=== PATIENT | male | born 1960 | race Caucasian/White ===

== ENCOUNTER 2021-02-19 05:18 | Inpatient (IN) | payer OTHER ==
[~2021-02-19] VITALS: Ht 172.7 cm; Wt 92.1 kg
[2021-02-19] MEDS ORDERED: ACETAMINOPHEN 500 MG TAB PO ONE (06:15)
[2021-02-19 06:44] LABS: INR 1.04 (0.9-1.15)
[2021-02-19 06:51] LABS: Albumin 3.2 g/dL (3.4-5.0); Anion Gap 10 (5-15); Blood Urea Nitrogen 17 mg/dL (7-18); Calcium 8.6 mg/dL (8.5-10.1); Carbon Dioxide 31 mmol/L (21-32); Chloride 88 mmol/L (98-107); Glucose 141 mg/dL (74-106); Sodium 129 mmol/L (136-145)
[2021-02-19 06:58] LABS: Alanine Aminotransferase 80 U/L (16-61); Alkaline Phosphatase 120 U/L (45-117); Aspartate Aminotransferase 112 U/L (15-37); BUN/Creatinine Ratio 21.5; Bilirubin, Total 1.8 mg/dL (0.2-1.0); GFR African American 129 mL/min; GFR Non-African American 106 mL/min; Total Protein 7.9 g/dL (6.4-8.2)
[2021-02-19 07:14] LABS: Basophils # (auto) 0.1 10 ^3/uL (0-0.2); Basophils % (auto) 0.3 % (0.0-2.0); Eosinophils # (auto) 0 10 ^3/uL (0-0.8); Hematocrit 45.5 % (41.0-53.0); Hemoglobin 16.1 g/dL (13.5-17.5); Lymphocytes # (auto) 0.9 10 ^3/uL (0.4-5.4); Lymphocytes % (auto) 4.9 % (10.0-50.0); Mean Corpuscular Hemoglobin 37.9 pg (28.0-32.0); Mean Corpuscular Hgb Conc. 35.3 g/dL (32.0-36.0); Mean Corpuscular Volume 107.4 fL (80.0-100.0); Monocytes % (auto) 5.5 % (0.0-12.0); Neutrophils # (auto) 16.5 10 ^3/uL (1.6-8.6); Neutrophils % (auto) 89.3 % (37.0-80.0); Nucleated Red Blood Cells % 0.1 %; Red Blood Cells 4.24 10^6/uL (4.5-5.90); Red Cell Distribution Width 14.7 % (11.8-14.3); White Blood Cell 18.5 10^3/uL (4.4-10.8)
[2021-02-19] MEDS ORDERED: AZITHROMYCIN 500MG/ 250ML 250 ML IV ONE (07:45)
[2021-02-19] MEDS ORDERED: cefTRIAXone 1GM/50ML D5W 50 ML IV ONE (07:45)
[2021-02-19] MEDS ORDERED: POTASSIUM EFFERVESENT TAB 25 MEQ PO ONE (08:00)
[2021-02-19] MEDS ORDERED: SODIUM CHLORIDE 0.9% 1,000 ML IV ONE (08:30)
[2021-02-19] MEDS ORDERED: NITROGLYCERIN 0.4 MG SL TAB SL PRN (09:00)
[2021-02-19] MEDS ORDERED: IPRATROPIUM BROM 0.5 MG/2.5ML INH SOL NEB ONE (09:00)
[2021-02-19] MEDS ORDERED: ACETAMINOPHEN 500 MG TAB PO PRN (09:00)
[2021-02-19] MEDS ORDERED: MORPHINE SULFATE INJECTION 2 MG/ML SYRG IV PRN (09:00)
[2021-02-19] MEDS ORDERED: HYDROcodone-ACET 5/325MG TAB PO PRN (09:00)
[2021-02-19] MEDS ORDERED: METOPROLOL TARTRATE 1MG/1ML-5ML VIAL IV ONE (09:00)
[2021-02-19] MEDS: cefTRIAXone 1GM/50ML D5W 50 ML IV SCH (09:00)
[2021-02-19] MEDS ORDERED: methylPREDNISolone SOD SUCC 125 MG/2 ML VL IV ONE (09:00)
[2021-02-19] MEDS ORDERED: LEVALBUTEROL HCL 1.25 MG/3 ML NEB NEB SCH (09:00)
[2021-02-19] MEDS: BUDESONIDE (INHALATION) 0.5 MG/2 ML NEB NEB SCH ×2 (09:50→19:15)
[2021-02-19] MEDS ORDERED: AZITHROMYCIN 500MG/ 250ML 250 ML IV SCH (10:00)
[2021-02-19] MEDS: LORazepam 2MG/ML-1ML VIAL IV PRN ×2 (10:04→19:35)
[2021-02-19] MEDS: ONDANSETRON HCL 4 MG/2 ML VIAL IV PRN (10:05)
[2021-02-19 10:29] VITALS: BP 140/91
[2021-02-19] MEDS: dilTIAZem HCL 180MG ER CAP PO SCH (10:32)
[2021-02-19] MEDS: ENOXAPARIN SOD 40 MG/0.4 ML SYRINGE SC SCH (10:32)
[2021-02-19] MEDS: MULTIPLE VITAMIN TAB PO SCH (10:32)
[2021-02-19] MEDS: RAMIPRIL 2.5 MG CAP PO SCH (10:32)
[2021-02-19] MEDS: THIAMINE HCL 100 MG TAB PO SCH (10:32)
[2021-02-19 13:01] LABS: Urine Bacteria FEW /hpf (None Seen); Urine Blood Negative /uL (Negative); Urine Hyaline Cast FEW /lpf (0 - 2); Urine Specific Gravity 1.024 (1.001-1.035); Urine WBC 3 /hpf (0 - 3)
[2021-02-19 13:17] LABS: Amphetamine Screen, Urine POSITIVE (NEGATIVE); Barbiturate Scree,Urine NEGATIVE (NEGATIVE); Benzodiazephine Screen, Urine NEGATIVE (NEGATIVE); Cannabinoid Screen, Urine POSITIVE (NEGATIVE); Cocaine Screen, Urine NEGATIVE (NEGATIVE); Opiate Scree,Urine NEGATIVE (NEGATIVE); Phencyclidine Screen, Urine NEGATIVE (NEGATIVE)
[2021-02-19] MEDS: LEVALBUTEROL HCL 1.25 MG/3 ML NEB NEB SCH ×2 (14:29→19:15)
[2021-02-19] MEDS: IPRATROPIUM BROM 0.5 MG/2.5ML INH SOL NEB SCH ×2 (14:29→19:15)
[2021-02-19] MEDS ORDERED: DIGO0.12 PO (16:42)
[2021-02-19] MEDS ORDERED: SULF400T11 PO (16:42)
[2021-02-19] MEDS ORDERED: POTA-264 PO (16:42)
[2021-02-19] MEDS ORDERED: FUR20T PO (16:42)
[2021-02-19] MEDS ORDERED: MET50T PO (16:42)
[2021-02-19] MEDS ORDERED: ALBU108A5 IN (16:42)
[2021-02-19] MEDS ORDERED: ASPI-528 PO (16:42)
[2021-02-19] MEDS ORDERED: METH4TAB47 PO (16:42)
[2021-02-19 21:05] VITALS: BP 119/72
[2021-02-19 22:00] VITALS: BP 119/72
[2021-02-20] MEDS: IPRATROPIUM BROM 0.5 MG/2.5ML INH SOL NEB SCH ×4 (00:58→19:04)
[2021-02-20] MEDS: LEVALBUTEROL HCL 1.25 MG/3 ML NEB NEB SCH ×4 (00:58→19:04)
[2021-02-20 05:00] VITALS: BP 112/70
[2021-02-20 06:21] LABS: Calcium 8.3 mg/dL (8.5-10.1); Potassium 3.2 mmol/L (3.5-5.1)
[2021-02-20] MEDS: BUDESONIDE (INHALATION) 0.5 MG/2 ML NEB NEB SCH ×2 (06:32→19:04)
[2021-02-20 07:33] LABS: Basophils # (auto) 0 10 ^3/uL (0-0.2); Basophils % (auto) 0.1 % (0.0-2.0); Eosinophils # (auto) 0 10 ^3/uL (0-0.8); Hemoglobin 14.6 g/dL (13.5-17.5); Lymphocytes # (auto) 0.6 10 ^3/uL (0.4-5.4); Lymphocytes % (auto) 3.8 % (10.0-50.0); Mean Corpuscular Hemoglobin 38.8 pg (28.0-32.0); Mean Corpuscular Hgb Conc. 35.6 g/dL (32.0-36.0); Mean Corpuscular Volume 108.8 fL (80.0-100.0); Monocytes # (auto) 0.7 10 ^3/uL (0-1.3); Monocytes % (auto) 4.6 % (0.0-12.0); Neutrophils # (auto) 14.4 10 ^3/uL (1.6-8.6); Neutrophils % (auto) 91.5 % (37.0-80.0); Nucleated Red Blood Cells % 0.1 %; Red Blood Cells 3.77 10^6/uL (4.5-5.90); Red Cell Distribution Width 15.1 % (11.8-14.3); White Blood Cell 15.7 10^3/uL (4.4-10.8)
[2021-02-20 08:00] VITALS: BP 103/61
[2021-02-20 09:00] VITALS: BP 103/61
[2021-02-20] MEDS: cefTRIAXone 1GM/50ML D5W 50 ML IV SCH (09:19)
[2021-02-20] MEDS: MULTIPLE VITAMIN TAB PO SCH (09:19)
[2021-02-20] MEDS: dilTIAZem HCL 180MG ER CAP PO SCH (09:20)
[2021-02-20] MEDS: THIAMINE HCL 100 MG TAB PO SCH (09:21)
[2021-02-20] MEDS: RAMIPRIL 2.5 MG CAP PO SCH (09:21)
[2021-02-20] MEDS: ENOXAPARIN SOD 40 MG/0.4 ML SYRINGE SC SCH (09:21)
[2021-02-20] MEDS: LORazepam 2MG/ML-1ML VIAL IV PRN ×2 (09:22→20:40)
[2021-02-20] MEDS ORDERED: methylPREDNISolone SOD SUCC 125 MG/2 ML VL IV ONE (10:00)
[2021-02-20] MEDS ORDERED: chlordiazePOXIDE HCL 25 MG CAP PO ONE (10:00)
[2021-02-20] MEDS ORDERED: POTASSIUM EFFERVESENT TAB 25 MEQ PO ONE (10:00)
[2021-02-20] MEDS ORDERED: DIGOXIN 0.125 MG TAB PO ONE (10:15)
[2021-02-20] MEDS ORDERED: FUROSEMIDE 20 MG TAB PO ONE (10:15)
[2021-02-20] MEDS ORDERED: METOPROLOL TARTRATE 50 MG TAB PO ONE (10:15)
[2021-02-20] MEDS: AZITHROMYCIN 500MG/ 250ML 250 ML IV SCH (10:30)
[2021-02-20 13:00] VITALS: BP_SYST 110; BP_SYST 91; BP_DIAS 55; BP_DIAS 65
[2021-02-20 17:00] VITALS: BP 91/55
[2021-02-20] MEDS ORDERED: IPRATROPIUM BROM 0.5 MG/2.5ML INH SOL NEB PRN (17:45)
[2021-02-20] MEDS: methylPREDNISolone SOD SUCC 40 MG/ML VL IV SCH (17:48)
[2021-02-20] MEDS: chlordiazePOXIDE HCL 25 MG CAP PO SCH (17:48)
[2021-02-20] MEDS ORDERED: LEVALBUTEROL HCL 1.25 MG/3 ML NEB NEB PRN (18:00)
[2021-02-20] MEDS ORDERED: LEVALBUTEROL HCL 1.25 MG/3 ML NEB NEB SCH (18:00)
[2021-02-20] MEDS: FUROSEMIDE 20 MG TAB PO SCH (18:00)
[2021-02-20 22:00] VITALS: BP 102/48
[2021-02-20] MEDS: METOPROLOL TARTRATE 50 MG TAB PO SCH (22:00)
[2021-02-21] MEDS: chlordiazePOXIDE HCL 25 MG CAP PO SCH ×5 (00:32→23:51)
[2021-02-21] MEDS: methylPREDNISolone SOD SUCC 40 MG/ML VL IV SCH ×3 (00:33→12:42)
[2021-02-21] MEDS: LEVALBUTEROL HCL 1.25 MG/3 ML NEB NEB SCH ×4 (00:59→18:38)
[2021-02-21] MEDS: IPRATROPIUM BROM 0.5 MG/2.5ML INH SOL NEB SCH ×4 (00:59→18:38)
[2021-02-21 05:00] VITALS: BP 104/53
[2021-02-21] MEDS: FUROSEMIDE 20 MG TAB PO SCH ×2 (05:56→18:03)
[2021-02-21 06:03] LABS: Basophils # (auto) 0 10 ^3/uL (0-0.2); Eosinophils # (auto) 0 10 ^3/uL (0-0.8); Hemoglobin 14.1 g/dL (13.5-17.5); Lymphocytes # (auto) 0.6 10 ^3/uL (0.4-5.4)
[2021-02-21 06:04] LABS: Basophils % (auto) 0.1 % (0.0-2.0); Hematocrit 39.4 % (41.0-53.0); Lymphocytes % (auto) 4.8 % (10.0-50.0); Mean Corpuscular Hemoglobin 38.8 pg (28.0-32.0); Mean Corpuscular Hgb Conc. 35.6 g/dL (32.0-36.0); Mean Corpuscular Volume 108.8 fL (80.0-100.0); Monocytes # (auto) 0.4 10 ^3/uL (0-1.3); Monocytes % (auto) 2.9 % (0.0-12.0); Neutrophils # (auto) 11.7 10 ^3/uL (1.6-8.6); Neutrophils % (auto) 92.2 % (37.0-80.0); Red Blood Cells 3.62 10^6/uL (4.5-5.90); Red Cell Distribution Width 14.6 % (11.8-14.3); White Blood Cell 12.7 10^3/uL (4.4-10.8)
[2021-02-21 06:53] LABS: Potassium 3.4 mmol/L (3.5-5.1)
[2021-02-21 06:59] LABS: Albumin 2.7 g/dL (3.4-5.0); BUN/Creatinine Ratio 35.5; Calcium 8.3 mg/dL (8.5-10.1)
[2021-02-21 07:01] LABS: Bilirubin, Total 0.6 mg/dL (0.2-1.0); Total Protein 7.1 g/dL (6.4-8.2)
[2021-02-21] MEDS: BUDESONIDE (INHALATION) 0.5 MG/2 ML NEB NEB SCH ×2 (08:15→18:38)
[2021-02-21 09:00] VITALS: BP 108/62
[2021-02-21] MEDS: cefTRIAXone 1GM/50ML D5W 50 ML IV SCH (09:18)
[2021-02-21] MEDS: THIAMINE HCL 100 MG TAB PO SCH (10:23)
[2021-02-21] MEDS: AZITHROMYCIN 500MG/ 250ML 250 ML IV SCH (10:23)
[2021-02-21] MEDS: RAMIPRIL 2.5 MG CAP PO SCH (10:25)
[2021-02-21] MEDS: dilTIAZem HCL 180MG ER CAP PO SCH (10:26)
[2021-02-21] MEDS: POTASSIUM CHL 10 Meq TABLET PO SCH (10:26)
[2021-02-21] MEDS: ASPirin-EC 81 mg tab PO SCH (10:26)
[2021-02-21] MEDS: DIGOXIN 0.125 MG TAB PO SCH (10:27)
[2021-02-21] MEDS: METOPROLOL TARTRATE 50 MG TAB PO SCH ×2 (10:27→22:00)
[2021-02-21] MEDS: MULTIPLE VITAMIN TAB PO SCH (10:27)
[2021-02-21] MEDS: ENOXAPARIN SOD 40 MG/0.4 ML SYRINGE SC SCH (10:28)
[2021-02-21] MEDS: LORazepam 2MG/ML-1ML VIAL IV PRN ×2 (12:11→19:30)
[2021-02-21] MEDS ORDERED: NICOTINE 21MG/24 HR TOPICAL PATCH TD ONE (12:30)
[2021-02-21] MEDS ORDERED: POTASSIUM EFFERVESENT TAB 25 MEQ PO ONE (14:45)
[2021-02-21 17:00] VITALS: BP 110/65
[2021-02-21] MEDS: Glucerna Carbsteady SHAKE Vanilla 8oz PO SCH (18:02)
[2021-02-21] MEDS: methylPREDNISolone SOD SUCC 125 MG/2 ML VL IV SCH (21:33)
[2021-02-21 22:00] VITALS: BP 100/59
[2021-02-22] MEDS: LEVALBUTEROL HCL 1.25 MG/3 ML NEB NEB SCH ×5 (00:19→23:45)
[2021-02-22] MEDS: IPRATROPIUM BROM 0.5 MG/2.5ML INH SOL NEB SCH ×5 (00:19→23:45)
[2021-02-22 05:00] VITALS: BP 124/62
[2021-02-22] MEDS: methylPREDNISolone SOD SUCC 125 MG/2 ML VL IV SCH ×3 (05:17→20:56)
[2021-02-22] MEDS: FUROSEMIDE 20 MG TAB PO SCH ×2 (05:18→18:00)
[2021-02-22] MEDS: chlordiazePOXIDE HCL 25 MG CAP PO SCH ×4 (05:19→23:51)
[2021-02-22 06:06] LABS: Basophils # (auto) 0 10 ^3/uL (0-0.2); Eosinophils # (auto) 0 10 ^3/uL (0-0.8); Lymphocytes # (auto) 0.6 10 ^3/uL (0.4-5.4); Monocytes # (auto) 0.4 10 ^3/uL (0-1.3); Neutrophils % (auto) 90.6 % (37.0-80.0); Red Blood Cells 3.46 10^6/uL (4.5-5.90)
[2021-02-22 06:08] LABS: Hematocrit 37.7 % (41.0-53.0); Hemoglobin 13.4 g/dL (13.5-17.5); Lymphocytes % (auto) 5.5 % (10.0-50.0); Mean Corpuscular Hemoglobin 38.7 pg (28.0-32.0); Mean Corpuscular Hgb Conc. 35.5 g/dL (32.0-36.0); Mean Corpuscular Volume 108.9 fL (80.0-100.0); Monocytes % (auto) 3.9 % (0.0-12.0); Neutrophils # (auto) 10.1 10 ^3/uL (1.6-8.6); Red Cell Distribution Width 14.5 % (11.8-14.3); White Blood Cell 11.1 10^3/uL (4.4-10.8)
[2021-02-22 06:26] LABS: Potassium 3.9 mmol/L (3.5-5.1)
[2021-02-22 06:39] LABS: Albumin 2.3 g/dL (3.4-5.0); BUN/Creatinine Ratio 43.3; Bilirubin, Total 0.5 mg/dL (0.2-1.0); Calcium 8.2 mg/dL (8.5-10.1); Total Protein 6.3 g/dL (6.4-8.2)
[2021-02-22] MEDS: BUDESONIDE (INHALATION) 0.5 MG/2 ML NEB NEB SCH ×2 (07:31→23:15)
[2021-02-22] MEDS: Glucerna Carbsteady SHAKE Vanilla 8oz PO SCH ×3 (08:51→18:39)
[2021-02-22] MEDS: cefTRIAXone 1GM/50ML D5W 50 ML IV SCH (08:51)
[2021-02-22 09:00] VITALS: BP 121/65
[2021-02-22] MEDS: THIAMINE HCL 100 MG TAB PO SCH (09:11)
[2021-02-22] MEDS: AZITHROMYCIN 500MG/ 250ML 250 ML IV SCH (09:11)
[2021-02-22] MEDS: RAMIPRIL 2.5 MG CAP PO SCH (09:16)
[2021-02-22] MEDS: dilTIAZem HCL 180MG ER CAP PO SCH (09:18)
[2021-02-22] MEDS: DIGOXIN 0.125 MG TAB PO SCH (09:18)
[2021-02-22] MEDS: POTASSIUM CHL 10 Meq TABLET PO SCH (09:18)
[2021-02-22] MEDS: ASPirin-EC 81 mg tab PO SCH (09:18)
[2021-02-22] MEDS: ENOXAPARIN SOD 40 MG/0.4 ML SYRINGE SC SCH (09:19)
[2021-02-22] MEDS: MULTIPLE VITAMIN TAB PO SCH (09:19)
[2021-02-22] MEDS: METOPROLOL TARTRATE 50 MG TAB PO SCH ×2 (09:19→22:00)
[2021-02-22] MEDS: NICOTINE 21MG/24 HR TOPICAL PATCH TD SCH (09:20)
[2021-02-22 13:00] VITALS: BP 107/68
[2021-02-22] MEDS ORDERED: IPRATROPIUM BROM 0.5 MG/2.5ML INH SOL NEB PRN (14:30)
[2021-02-22 15:06] VITALS: BP 107/68
[2021-02-22 16:46] VITALS: BP 89/59
[2021-02-22] MEDS: ONDANSETRON HCL 4 MG/2 ML VIAL IV PRN ×2 (19:46→23:51)
[2021-02-22 22:00] VITALS: BP 99/58
[2021-02-23 05:00] VITALS: BP 90/48
[2021-02-23] MEDS: methylPREDNISolone SOD SUCC 125 MG/2 ML VL IV SCH ×3 (05:33→21:23)
[2021-02-23] MEDS: FUROSEMIDE 20 MG TAB PO SCH ×2 (05:33→18:52)
[2021-02-23] MEDS: chlordiazePOXIDE HCL 25 MG CAP PO SCH ×4 (05:33→23:29)
[2021-02-23] MEDS: IPRATROPIUM BROM 0.5 MG/2.5ML INH SOL NEB SCH ×4 (06:45→23:38)
[2021-02-23] MEDS: BUDESONIDE (INHALATION) 0.5 MG/2 ML NEB NEB SCH ×2 (06:45→19:46)
[2021-02-23] MEDS: LEVALBUTEROL HCL 1.25 MG/3 ML NEB NEB SCH ×4 (06:45→23:38)
[2021-02-23 07:26] LABS: Hematocrit 40.5 % (41.0-53.0); Hemoglobin 14.3 g/dL (13.5-17.5); Mean Corpuscular Hemoglobin 38.8 pg (28.0-32.0); Mean Corpuscular Hgb Conc. 35.4 g/dL (32.0-36.0); Mean Corpuscular Volume 109.5 fL (80.0-100.0); Red Blood Cells 3.69 10^6/uL (4.5-5.90); Red Cell Distribution Width 14.3 % (11.8-14.3); White Blood Cell 11.8 10^3/uL (4.4-10.8)
[2021-02-23 07:27] LABS: Band Neutrophils % (manual) 0; Basophils % (manual) 0 (0.0-2.0); Blast Cells 0; Eosinophils % (manual) 0 (0-7); Metamyelocytes % 0; Myelocytes % 0; Promyelocytes % 0; Reactive Lymphocytes 0
[2021-02-23 07:49] LABS: Calcium 8.4 mg/dL (8.5-10.1); Potassium 4.8 mmol/L (3.5-5.1)
[2021-02-23 07:52] LABS: BUN/Creatinine Ratio 51.1
[2021-02-23 08:19] LABS: Lymphocytes % (manual) 9 (10.0-50.0); Monocytes % (manual) 2 (0-12)
[2021-02-23 08:27] VITALS: BP 95/57
[2021-02-23] MEDS: METOPROLOL TARTRATE 50 MG TAB PO SCH ×2 (10:00→23:29)
[2021-02-23] MEDS: dilTIAZem HCL 180MG ER CAP PO SCH (10:00)
[2021-02-23] MEDS: RAMIPRIL 2.5 MG CAP PO SCH (10:00)
[2021-02-23] MEDS: ENOXAPARIN SOD 40 MG/0.4 ML SYRINGE SC SCH (10:05)
[2021-02-23] MEDS: cefTRIAXone 1GM/50ML D5W 50 ML IV SCH (10:05)
[2021-02-23] MEDS: POTASSIUM CHL 10 Meq TABLET PO SCH (10:05)
[2021-02-23] MEDS: DIGOXIN 0.125 MG TAB PO SCH (10:07)
[2021-02-23] MEDS: THIAMINE HCL 100 MG TAB PO SCH (10:07)
[2021-02-23] MEDS: ASPirin-EC 81 mg tab PO SCH (10:07)
[2021-02-23] MEDS: MULTIPLE VITAMIN TAB PO SCH (10:08)
[2021-02-23] MEDS: NICOTINE 21MG/24 HR TOPICAL PATCH TD SCH (10:08)
[2021-02-23] MEDS: AZITHROMYCIN 500MG/ 250ML 250 ML IV SCH (10:12)
[2021-02-23] MEDS: Glucerna Carbsteady SHAKE Vanilla 8oz PO SCH ×3 (10:15→18:51)
[2021-02-23 13:00] VITALS: BP 118/76
[2021-02-23 16:48] VITALS: BP 124/78
[2021-02-23] MEDS: LORazepam 2MG/ML-1ML VIAL IV PRN (21:23)
[2021-02-23 22:00] VITALS: BP 119/77
[2021-02-24 05:00] VITALS: BP 124/88
[2021-02-24] MEDS: methylPREDNISolone SOD SUCC 125 MG/2 ML VL IV SCH (05:52)
[2021-02-24] MEDS: FUROSEMIDE 20 MG TAB PO SCH ×2 (05:52→17:42)
[2021-02-24] MEDS: chlordiazePOXIDE HCL 25 MG CAP PO SCH ×4 (05:53→23:30)
[2021-02-24 06:12] LABS: Hemoglobin 14.6 g/dL (13.5-17.5)
[2021-02-24 06:21] LABS: Hematocrit 41.8 % (41.0-53.0); Mean Corpuscular Hemoglobin 38.2 pg (28.0-32.0); Mean Corpuscular Volume 109.3 fL (80.0-100.0); Red Blood Cells 3.82 10^6/uL (4.5-5.90); Red Cell Distribution Width 14.7 % (11.8-14.3); White Blood Cell 12.4 10^3/uL (4.4-10.8)
[2021-02-24 06:25] LABS: Basophils % (manual) 0 (0.0-2.0); Blast Cells 0; Eosinophils % (manual) 0 (0-7); Promyelocytes % 0; Reactive Lymphocytes 0
[2021-02-24] MEDS: LEVALBUTEROL HCL 1.25 MG/3 ML NEB NEB SCH ×3 (07:21→18:49)
[2021-02-24] MEDS: BUDESONIDE (INHALATION) 0.5 MG/2 ML NEB NEB SCH ×2 (07:22→18:49)
[2021-02-24] MEDS: IPRATROPIUM BROM 0.5 MG/2.5ML INH SOL NEB SCH ×3 (07:22→18:49)
[2021-02-24 08:00] VITALS: BP 116/72
[2021-02-24 08:30] LABS: Anion Gap 5 (5-15); Blood Urea Nitrogen 42 mg/dL (7-18); Calcium 8.4 mg/dL (8.5-10.1); Carbon Dioxide 34 mmol/L (21-32); Chloride 100 mmol/L (98-107); Glucose 141 mg/dL (74-106); Sodium 139 mmol/L (136-145)
[2021-02-24 08:36] LABS: BUN/Creatinine Ratio 42.4; GFR African American 99 mL/min; GFR Non-African American 82 mL/min
[2021-02-24 08:41] LABS: Band Neutrophils % (manual) 1; Lymphocytes % (manual) 11 (10.0-50.0); Metamyelocytes % 2; Monocytes % (manual) 5 (0-12); Myelocytes % 1
[2021-02-24 09:00] VITALS: BP 116/72
[2021-02-24] MEDS: Glucerna Carbsteady SHAKE Vanilla 8oz PO SCH ×3 (10:03→17:41)
[2021-02-24] MEDS: AZITHROMYCIN 500MG/ 250ML 250 ML IV SCH (10:04)
[2021-02-24] MEDS: THIAMINE HCL 100 MG TAB PO SCH (10:04)
[2021-02-24] MEDS: dilTIAZem HCL 180MG ER CAP PO SCH (10:05)
[2021-02-24] MEDS: ASPirin-EC 81 mg tab PO SCH (10:05)
[2021-02-24] MEDS: RAMIPRIL 2.5 MG CAP PO SCH (10:05)
[2021-02-24] MEDS: MULTIPLE VITAMIN TAB PO SCH (10:06)
[2021-02-24] MEDS: ENOXAPARIN SOD 40 MG/0.4 ML SYRINGE SC SCH (10:06)
[2021-02-24] MEDS: DIGOXIN 0.125 MG TAB PO SCH (10:06)
[2021-02-24] MEDS: METOPROLOL TARTRATE 50 MG TAB PO SCH ×2 (10:07→21:36)
[2021-02-24] MEDS: NICOTINE 21MG/24 HR TOPICAL PATCH TD SCH (10:07)
[2021-02-24] MEDS: cefTRIAXone 1GM/50ML D5W 50 ML IV SCH (10:15)
[2021-02-24] MEDS: LORazepam 2MG/ML-1ML VIAL IV PRN ×2 (10:15→21:36)
[2021-02-24 12:48] VITALS: BP 124/70
[2021-02-24 16:58] VITALS: BP 100/54
[2021-02-24] MEDS: methylPREDNISolone SOD SUCC 40 MG/ML VL IV SCH (21:35)
[2021-02-24 22:00] VITALS: BP 106/70
[2021-02-25] VITALS (7 sets, daily range): BP systolic 100–123; BP diastolic 63–80
[2021-02-25] MEDS: LEVALBUTEROL HCL 1.25 MG/3 ML NEB NEB SCH ×4 (00:32→19:19)
[2021-02-25] MEDS: IPRATROPIUM BROM 0.5 MG/2.5ML INH SOL NEB SCH ×4 (00:32→19:19)
[2021-02-25] MEDS: MORPHINE SULFATE INJECTION 2 MG/ML SYRG IV PRN (02:05)
[2021-02-25] MEDS: LORazepam 2MG/ML-1ML VIAL IV PRN ×4 (04:59→21:02)
[2021-02-25] MEDS: FUROSEMIDE 20 MG TAB PO SCH ×2 (04:59→17:58)
[2021-02-25] MEDS: chlordiazePOXIDE HCL 25 MG CAP PO SCH ×4 (04:59→23:39)
[2021-02-25] MEDS: BUDESONIDE (INHALATION) 0.5 MG/2 ML NEB NEB SCH ×2 (06:44→19:19)
[2021-02-25 06:58] LABS: Anion Gap 6 (5-15); BUN/Creatinine Ratio 55.8; Blood Urea Nitrogen 43 mg/dL (7-18); Calcium 7.6 mg/dL (8.5-10.1); Carbon Dioxide 28 mmol/L (21-32); Chloride 101 mmol/L (98-107); GFR African American 133 mL/min; GFR Non-African American 110 mL/min; Glucose 142 mg/dL (74-106); Sodium 135 mmol/L (136-145)
[2021-02-25 07:06] LABS: Hematocrit 45.9 % (41.0-53.0); Hemoglobin 16.2 g/dL (13.5-17.5); Mean Corpuscular Hemoglobin 38.6 pg (28.0-32.0); Mean Corpuscular Hgb Conc. 35.4 g/dL (32.0-36.0); Mean Corpuscular Volume 109.1 fL (80.0-100.0); Red Cell Distribution Width 14.7 % (11.8-14.3)
[2021-02-25 07:30] LABS: Band Neutrophils % (manual) 0; Basophils % (manual) 0 (0.0-2.0); Blast Cells 0; Eosinophils % (manual) 0 (0-7); Metamyelocytes % 0; Myelocytes % 0; Promyelocytes % 0; Reactive Lymphocytes 0
[2021-02-25 07:34] LABS: Potassium 6.2 mmol/L (3.5-5.1)
[2021-02-25] MEDS ORDERED: InsuLIN REG 1unit/0.01ml Soln (100units/ml) IV ONE (08:00)
[2021-02-25] MEDS ORDERED: SODIUM BICARBONATE 8.4% INJ 50ML SYRINGE IV ONE (08:00)
[2021-02-25] MEDS ORDERED: CALCIUM GLUC 1,000mg/50ml-NS 50 ML IV ONE ×2 (08:00→08:15)
[2021-02-25] MEDS ORDERED: DEXTROSE (50%) 50ML SYRG IV ONE (08:00)
[2021-02-25] MEDS: SODIUM ZIRCONIUM CYCL 10 GM PAK PO SCH ×2 (08:32→21:02)
[2021-02-25] MEDS: Glucerna Carbsteady SHAKE Vanilla 8oz PO SCH ×3 (08:33→17:49)
[2021-02-25 08:37] LABS: Lymphocytes % (manual) 9 (10.0-50.0)
[2021-02-25 08:38] LABS: Monocytes % (manual) 13 (0-12)
[2021-02-25 08:48] LABS: Calcium 8.1 mg/dL (8.5-10.1)
[2021-02-25] MEDS: THIAMINE HCL 100 MG TAB PO SCH (10:00)
[2021-02-25] MEDS: DIGOXIN 0.125 MG TAB PO SCH (10:00)
[2021-02-25] MEDS: MULTIPLE VITAMIN TAB PO SCH (10:00)
[2021-02-25] MEDS: dilTIAZem HCL 180MG ER CAP PO SCH (10:00)
[2021-02-25] MEDS: ASPirin-EC 81 mg tab PO SCH (10:00)
[2021-02-25] MEDS: cefTRIAXone 1GM/50ML D5W 50 ML IV SCH (10:06)
[2021-02-25] MEDS: methylPREDNISolone SOD SUCC 40 MG/ML VL IV SCH ×2 (10:06→21:02)
[2021-02-25] MEDS: AZITHROMYCIN 500MG/ 250ML 250 ML IV SCH (10:07)
[2021-02-25] MEDS: ENOXAPARIN SOD 40 MG/0.4 ML SYRINGE SC SCH (10:07)
[2021-02-25] MEDS: NICOTINE 21MG/24 HR TOPICAL PATCH TD SCH (10:08)
[2021-02-25 18:53] LABS: BUN/Creatinine Ratio 57.1; Calcium 8.7 mg/dL (8.5-10.1)
[2021-02-26] MEDS: LEVALBUTEROL HCL 1.25 MG/3 ML NEB NEB SCH ×4 (00:05→18:52)
[2021-02-26] MEDS: IPRATROPIUM BROM 0.5 MG/2.5ML INH SOL NEB SCH ×4 (00:06→18:51)
[2021-02-26 05:00] VITALS: BP 107/75
[2021-02-26 05:35] LABS: Hemoglobin 13.9 g/dL (13.5-17.5); Mean Corpuscular Hemoglobin 38.1 pg (28.0-32.0); Mean Corpuscular Hgb Conc. 34.9 g/dL (32.0-36.0); Mean Corpuscular Volume 109.2 fL (80.0-100.0); Red Blood Cells 3.66 10^6/uL (4.5-5.90); Red Cell Distribution Width 14.4 % (11.8-14.3); White Blood Cell 11.4 10^3/uL (4.4-10.8)
[2021-02-26] MEDS: SODIUM ZIRCONIUM CYCL 10 GM PAK PO SCH (05:39)
[2021-02-26] MEDS: chlordiazePOXIDE HCL 25 MG CAP PO SCH ×4 (05:39→23:23)
[2021-02-26 05:47] LABS: Calcium 8.4 mg/dL (8.5-10.1); Potassium 4.9 mmol/L (3.5-5.1)
[2021-02-26 05:49] LABS: BUN/Creatinine Ratio 52.3
[2021-02-26] MEDS: FUROSEMIDE 20 MG TAB PO SCH ×2 (05:50→17:41)
[2021-02-26 05:54] LABS: Basophils % (manual) 0 (0.0-2.0); Blast Cells 0; Eosinophils % (manual) 0 (0-7); Myelocytes % 0; Promyelocytes % 0; Reactive Lymphocytes 0
[2021-02-26] MEDS: BUDESONIDE (INHALATION) 0.5 MG/2 ML NEB NEB SCH ×2 (07:05→18:58)
[2021-02-26] MEDS: Glucerna Carbsteady SHAKE Vanilla 8oz PO SCH ×3 (08:00→18:00)
[2021-02-26 08:16] LABS: Band Neutrophils % (manual) 4; Lymphocytes % (manual) 4 (10.0-50.0); Metamyelocytes % 3; Monocytes % (manual) 9 (0-12)
[2021-02-26 09:00] VITALS: BP 105/65
[2021-02-26] MEDS: ASPirin-EC 81 mg tab PO SCH (09:28)
[2021-02-26] MEDS: ONDANSETRON HCL 4 MG/2 ML VIAL IV PRN (09:29)
[2021-02-26] MEDS: methylPREDNISolone SOD SUCC 40 MG/ML VL IV SCH (09:30)
[2021-02-26] MEDS: ENOXAPARIN SOD 40 MG/0.4 ML SYRINGE SC SCH (09:30)
[2021-02-26] MEDS: DIGOXIN 0.125 MG TAB PO SCH (09:30)
[2021-02-26] MEDS: dilTIAZem HCL 180MG ER CAP PO SCH (09:31)
[2021-02-26] MEDS: cefTRIAXone 1GM/50ML D5W 50 ML IV SCH (09:32)
[2021-02-26] MEDS: MULTIPLE VITAMIN TAB PO SCH (09:32)
[2021-02-26] MEDS: THIAMINE HCL 100 MG TAB PO SCH (09:32)
[2021-02-26] MEDS: NICOTINE 21MG/24 HR TOPICAL PATCH TD SCH (09:42)
[2021-02-26] MEDS: LORazepam 2MG/ML-1ML VIAL IV PRN ×3 (12:06→21:25)
[2021-02-26] MEDS: AZITHROMYCIN 500MG/ 250ML 250 ML IV SCH (12:10)
[2021-02-26 13:00] VITALS: BP 125/87
[2021-02-26 17:00] VITALS: BP 122/73
[2021-02-26 22:00] VITALS: BP 99/52
[2021-02-27] MEDS: LEVALBUTEROL HCL 1.25 MG/3 ML NEB NEB SCH ×4 (00:15→19:01)
[2021-02-27] MEDS: IPRATROPIUM BROM 0.5 MG/2.5ML INH SOL NEB SCH ×4 (00:15→19:01)
[2021-02-27] MEDS: LORazepam 2MG/ML-1ML VIAL IV PRN ×4 (01:34→21:51)
[2021-02-27 05:00] VITALS: BP 119/72
[2021-02-27] MEDS: FUROSEMIDE 20 MG TAB PO SCH ×2 (05:31→18:29)
[2021-02-27] MEDS: chlordiazePOXIDE HCL 25 MG CAP PO SCH ×4 (05:31→23:17)
[2021-02-27] MEDS: BUDESONIDE (INHALATION) 0.5 MG/2 ML NEB NEB SCH ×2 (06:34→19:01)
[2021-02-27 07:13] LABS: Red Cell Distribution Width 14.5 % (11.8-14.3)
[2021-02-27 07:16] LABS: Hematocrit 40.8 % (41.0-53.0); Mean Corpuscular Hemoglobin 37.6 pg (28.0-32.0); Mean Corpuscular Hgb Conc. 34.3 g/dL (32.0-36.0); Mean Corpuscular Volume 109.6 fL (80.0-100.0); Red Blood Cells 3.72 10^6/uL (4.5-5.90); White Blood Cell 9.8 10^3/uL (4.4-10.8)
[2021-02-27 07:23] LABS: Basophils % (manual) 0 (0.0-2.0); Blast Cells 0; Eosinophils % (manual) 0 (0-7); Myelocytes % 0; Promyelocytes % 0; Reactive Lymphocytes 0
[2021-02-27 07:29] LABS: BUN/Creatinine Ratio 56.6; Calcium 8.3 mg/dL (8.5-10.1); Potassium 4.1 mmol/L (3.5-5.1)
[2021-02-27] MEDS: Glucerna Carbsteady SHAKE Vanilla 8oz PO SCH ×3 (08:00→18:29)
[2021-02-27 08:10] LABS: Band Neutrophils % (manual) 2; Lymphocytes % (manual) 22 (10.0-50.0); Metamyelocytes % 1; Monocytes % (manual) 6 (0-12)
[2021-02-27] MEDS: methylPREDNISolone SOD SUCC 40 MG/ML VL IV SCH (08:33)
[2021-02-27] MEDS: cefTRIAXone 1GM/50ML D5W 50 ML IV SCH (08:34)
[2021-02-27] MEDS: NICOTINE 21MG/24 HR TOPICAL PATCH TD SCH (08:34)
[2021-02-27] MEDS: ENOXAPARIN SOD 40 MG/0.4 ML SYRINGE SC SCH (08:34)
[2021-02-27] MEDS: ASPirin-EC 81 mg tab PO SCH (08:44)
[2021-02-27] MEDS: DIGOXIN 0.125 MG TAB PO SCH (08:44)
[2021-02-27] MEDS: dilTIAZem HCL 180MG ER CAP PO SCH (08:45)
[2021-02-27] MEDS: THIAMINE HCL 100 MG TAB PO SCH (08:45)
[2021-02-27] MEDS: MULTIPLE VITAMIN TAB PO SCH (08:45)
[2021-02-27 09:00] VITALS: BP 125/86
[2021-02-27 13:00] VITALS: BP 129/84
[2021-02-27 22:00] VITALS: BP 117/79
[2021-02-28] MEDS: LEVALBUTEROL HCL 1.25 MG/3 ML NEB NEB SCH ×4 (00:01→18:50)
[2021-02-28] MEDS: IPRATROPIUM BROM 0.5 MG/2.5ML INH SOL NEB SCH ×4 (00:01→18:49)
[2021-02-28 05:00] VITALS: BP 116/76
[2021-02-28] MEDS: FUROSEMIDE 20 MG TAB PO SCH ×2 (06:39→17:46)
[2021-02-28] MEDS: chlordiazePOXIDE HCL 25 MG CAP PO SCH ×3 (06:39→17:46)
[2021-02-28] MEDS: BUDESONIDE (INHALATION) 0.5 MG/2 ML NEB NEB SCH ×2 (07:50→18:50)
[2021-02-28] MEDS: Glucerna Carbsteady SHAKE Vanilla 8oz PO SCH ×3 (08:07→17:46)
[2021-02-28 08:17] LABS: Basophils # (auto) 0.1 10 ^3/uL (0-0.2); Eosinophils # (auto) 0.1 10 ^3/uL (0-0.8); Eosinophils % (auto) 0.4 % (0.0-7.0); Hemoglobin 15.2 g/dL (13.5-17.5); Lymphocytes # (auto) 2.2 10 ^3/uL (0.4-5.4); Monocytes # (auto) 0.7 10 ^3/uL (0-1.3); Neutrophils # (auto) 13.3 10 ^3/uL (1.6-8.6); White Blood Cell 16.3 10^3/uL (4.4-10.8)
[2021-02-28 08:20] LABS: Basophils % (auto) 0.3 % (0.0-2.0); Hematocrit 44.6 % (41.0-53.0); Lymphocytes % (auto) 13.6 % (10.0-50.0); Mean Corpuscular Hemoglobin 37.7 pg (28.0-32.0); Mean Corpuscular Hgb Conc. 34.1 g/dL (32.0-36.0); Mean Corpuscular Volume 110.7 fL (80.0-100.0); Monocytes % (auto) 4.1 % (0.0-12.0); Neutrophils % (auto) 81.6 % (37.0-80.0); Red Blood Cells 4.03 10^6/uL (4.5-5.90); Red Cell Distribution Width 14.7 % (11.8-14.3)
[2021-02-28 08:32] LABS: BUN/Creatinine Ratio 43.6; Calcium 8.5 mg/dL (8.5-10.1); Potassium 4.2 mmol/L (3.5-5.1)
[2021-02-28 08:37] VITALS: BP 116/76
[2021-02-28 09:00] VITALS: BP 122/78
[2021-02-28] MEDS: DOXYCYCLINE 100MG/250ML 250 ML IV SCH ×2 (10:28→22:57)
[2021-02-28] MEDS: DIGOXIN 0.125 MG TAB PO SCH (10:33)
[2021-02-28] MEDS: THIAMINE HCL 100 MG TAB PO SCH (10:33)
[2021-02-28] MEDS: dilTIAZem HCL 180MG ER CAP PO SCH (10:34)
[2021-02-28] MEDS: ASPirin-EC 81 mg tab PO SCH (10:34)
[2021-02-28] MEDS: methylPREDNISolone SOD SUCC 40 MG/ML VL IV SCH (10:34)
[2021-02-28] MEDS: ENOXAPARIN SOD 40 MG/0.4 ML SYRINGE SC SCH (10:34)
[2021-02-28] MEDS: NICOTINE 21MG/24 HR TOPICAL PATCH TD SCH (10:34)
[2021-02-28] MEDS: MULTIPLE VITAMIN TAB PO SCH (10:34)
[2021-02-28 13:00] VITALS: BP 122/71
[2021-02-28] MEDS: MEROPENEM 1GM IVPB 100 ML IV SCH ×2 (15:18→21:58)
[2021-02-28 17:00] VITALS: BP 110/67
[2021-02-28] MEDS: LORazepam 2MG/ML-1ML VIAL IV PRN ×2 (21:41→22:57)
[2021-02-28 22:00] VITALS: BP 109/77
[2021-03-01] MEDS: MORPHINE SULFATE INJECTION 2 MG/ML SYRG IV PRN (04:15)
[2021-03-01 05:00] VITALS: BP 136/77
[2021-03-01] MEDS: MEROPENEM 1GM IVPB 100 ML IV SCH ×2 (05:08→13:29)
[2021-03-01] MEDS: chlordiazePOXIDE HCL 25 MG CAP PO SCH ×3 (05:09→12:00)
[2021-03-01] MEDS: FUROSEMIDE 20 MG TAB PO SCH (05:09)
[2021-03-01] MEDS: IPRATROPIUM BROM 0.5 MG/2.5ML INH SOL NEB SCH ×2 (07:10)
[2021-03-01] MEDS: LEVALBUTEROL HCL 1.25 MG/3 ML NEB NEB SCH ×2 (07:11)
[2021-03-01] MEDS: BUDESONIDE (INHALATION) 0.5 MG/2 ML NEB NEB SCH (07:11)
[2021-03-01 07:43] LABS: Red Cell Distribution Width 14.7 % (11.8-14.3)
[2021-03-01 07:52] LABS: Hematocrit 39.4 % (41.0-53.0); Hemoglobin 13.6 g/dL (13.5-17.5); Mean Corpuscular Hemoglobin 38.2 pg (28.0-32.0); Mean Corpuscular Hgb Conc. 34.7 g/dL (32.0-36.0); Mean Corpuscular Volume 110.3 fL (80.0-100.0); Red Blood Cells 3.57 10^6/uL (4.5-5.90); White Blood Cell 12.5 10^3/uL (4.4-10.8)
[2021-03-01 07:59] LABS: Band Neutrophils % (manual) 0; Basophils % (manual) 0 (0.0-2.0); Blast Cells 0; Metamyelocytes % 0; Myelocytes % 0; Promyelocytes % 0; Reactive Lymphocytes 0
[2021-03-01] MEDS: Glucerna Carbsteady SHAKE Vanilla 8oz PO SCH ×2 (08:00→12:05)
[2021-03-01 08:17] LABS: Albumin 2.2 g/dL (3.4-5.0); Calcium 8.1 mg/dL (8.5-10.1); Potassium 3.8 mmol/L (3.5-5.1)
[2021-03-01 08:21] LABS: BUN/Creatinine Ratio 45.9; Bilirubin, Total 0.4 mg/dL (0.2-1.0); Total Protein 5.7 g/dL (6.4-8.2)
[2021-03-01 08:37] LABS: Eosinophils % (manual) 1 (0-7); Lymphocytes % (manual) 7 (10.0-50.0); Monocytes % (manual) 4 (0-12)
[2021-03-01] MEDS: LORazepam 2MG/ML-1ML VIAL IV PRN (08:42)
[2021-03-01 09:29] VITALS: BP 136/77
[2021-03-01] MEDS: NICOTINE 21MG/24 HR TOPICAL PATCH TD SCH (10:00)
[2021-03-01] MEDS: THIAMINE HCL 100 MG TAB PO SCH (10:00)
[2021-03-01] MEDS: MULTIPLE VITAMIN TAB PO SCH (10:00)
[2021-03-01] MEDS: dilTIAZem HCL 180MG ER CAP PO SCH (10:00)
[2021-03-01] MEDS: DOXYCYCLINE 100MG/250ML 250 ML IV SCH (10:00)
[2021-03-01] MEDS: methylPREDNISolone SOD SUCC 40 MG/ML VL IV SCH (10:00)
[2021-03-01] MEDS: ASPirin-EC 81 mg tab PO SCH (10:00)
[2021-03-01] MEDS: ENOXAPARIN SOD 40 MG/0.4 ML SYRINGE SC SCH (10:00)
[2021-03-01] MEDS: DIGOXIN 0.125 MG TAB PO SCH (10:00)
== END 2021-03-01 14:15 | disposition hospice, home (50) | DRG 720 ==
LOC: EDBD 05:18 → ER 05:18 → TELE 08:51 → TELE-WESTW 21:05
PROVIDERS: ADMIT Nurse Practitioner Acute Care; ATTEND Internal Medicine
PROC: 5A09357 Assistance with Respiratory Ventilation, Less than 24 Consecutive Hours, Continuous Positive Airway Pressure (ICD-10-PCS; principal; 2021-02-23)
PROC: 5A09357 Assistance with Respiratory Ventilation, Less than 24 Consecutive Hours, Continuous Positive Airway Pressure (ICD-10-PCS; 2021-02-26)
PROC: 05H933Z Insertion of Infusion Device into Right Brachial Vein, Percutaneous Approach (ICD-10-PCS; 2021-02-27)
PROC: B54MZZA Ultrasonography of Right Upper Extremity Veins, Guidance (ICD-10-PCS; 2021-02-27)
DX: A41.9 Sepsis, unspecified organism (principal); J96.21 Acute and chronic respiratory failure with hypoxia; I50.23 Acute on chronic systolic (congestive) heart failure; F10.231 Alcohol dependence with withdrawal delirium; G92 Toxic encephalopathy; E44.0 Moderate protein-calorie malnutrition; D69.6 Thrombocytopenia, unspecified; J18.9 Pneumonia, unspecified organism; E87.1 Hypo-osmolality and hyponatremia; J45.901 Unspecified asthma with (acute) exacerbation; E87.6 Hypokalemia; J43.9 Emphysema, unspecified; R73.9 Hyperglycemia, unspecified; R74.8 Abnormal levels of other serum enzymes; E66.9 Obesity, unspecified; E87.5 Hyperkalemia; F17.210 Nicotine dependence, cigarettes, uncomplicated; F41.9 Anxiety disorder, unspecified; J98.11 Atelectasis; N18.9 Chronic kidney disease, unspecified; Z51.5 Encounter for palliative care; Z20.822 Contact with and (suspected) exposure to COVID-19; Z66 Do not resuscitate; Z82.5 Family history of asthma and other chronic lower respiratory diseases; Z68.30 Body mass index [BMI] 30.0-30.9, adult; Z87.01 Personal history of pneumonia (recurrent); Y90.1 Blood alcohol level of 20-39 mg/100 ml
CPT/HCPCS: 36415; 36600; 71045; 71250; 76705; 80048; 80053; 80162; 80307; 81001; 82805; 82962; 83036; 83605; 83735; 83880; 84443; 84484; 85007; 85025; 85027; 85610; 87040; 87426; 92610; 93005; 93306; 94640; 94660; 96365; 96366; 96368; 96372; 96375; 96376; G0378; J0696; J1815; J2185; J2405; J3490

== ENCOUNTER 2021-03-01 18:38 | Inpatient (IN) | payer OTHER ==
[~2021-03-01] VITALS: Ht 170.2 cm; Wt 86.6 kg
[~2021-03-01 18:38] MED LIST: ALBU108A5 IN; ASPI-528 PO; DIGO0.12 PO; FUR20T PO; MET50T PO; METH4TAB47 PO; POTA-264 PO; SULF400T11 PO
[2021-03-01] MEDS ORDERED: diphenhdrAMINE HCL 50 MG/1 ML VL IM ONE (20:00)
[2021-03-01] MEDS ORDERED: LORazepam 2MG/ML-1ML VIAL IM ONE (20:00)
[2021-03-01] MEDS ORDERED: HALOPERIDOL LACTATE 5 MG/ML INJ VIAL IM ONE ×2 (20:00→21:45)
[2021-03-01] MEDS ORDERED: TETANUS-DIPTH-ACEL PERTUSSIS 0.5ML SYR Tdap IM ONE (20:30)
[2021-03-01] MEDS ORDERED: cefTRIAXone SOD 1,000 MG VL IM ONE (20:30)
[2021-03-01 21:32] LABS: Eosinophils # (auto) 0.2 10 ^3/uL (0-0.8); Mean Corpuscular Volume 110.3 fL (80.0-100.0); Monocytes # (auto) 0.6 10 ^3/uL (0-1.3); Neutrophils # (auto) 10.1 10 ^3/uL (1.6-8.6); White Blood Cell 12.6 10^3/uL (4.4-10.8)
[2021-03-01 21:34] LABS: Basophils # (auto) 0.1 10 ^3/uL (0-0.2); Basophils % (auto) 0.4 % (0.0-2.0); Eosinophils % (auto) 1.4 % (0.0-7.0); Hematocrit 40.3 % (41.0-53.0); Hemoglobin 13.7 g/dL (13.5-17.5); Lymphocytes # (auto) 1.7 10 ^3/uL (0.4-5.4); Lymphocytes % (auto) 13.3 % (10.0-50.0); Mean Corpuscular Hemoglobin 37.6 pg (28.0-32.0); Mean Corpuscular Hgb Conc. 34.1 g/dL (32.0-36.0); Monocytes % (auto) 4.6 % (0.0-12.0); Neutrophils % (auto) 80.3 % (37.0-80.0); Nucleated Red Blood Cells % 0.2 %; Red Blood Cells 3.65 10^6/uL (4.5-5.90); Red Cell Distribution Width 14.5 % (11.8-14.3)
[2021-03-01 21:45] LABS: Albumin 2.5 g/dL (3.4-5.0); Anion Gap 4 (5-15); BUN/Creatinine Ratio 30.9; Blood Urea Nitrogen 25 mg/dL (7-18); Calcium 8.3 mg/dL (8.5-10.1); Carbon Dioxide 36 mmol/L (21-32); Chloride 99 mmol/L (98-107); GFR African American 125 mL/min; GFR Non-African American 103 mL/min; Glucose 88 mg/dL (74-106); Magnesium 2.3 mg/dL (1.6-2.6); Salicylate < 1.7 mg/dL (2.8-20.0); Sodium 139 mmol/L (136-145)
[2021-03-01] MEDS ORDERED: LORazepam 2MG/ML-1ML VIAL IV ONE (21:45)
[2021-03-01] MEDS ORDERED: diphenhdrAMINE HCL 50 MG/1 ML VL IV ONE (21:45)
[2021-03-01 21:48] LABS: Acetaminophen < 2.0 ug/mL (10-30)
[2021-03-01 21:51] LABS: Alanine Aminotransferase 165 U/L (16-61); Alkaline Phosphatase 87 U/L (45-117); Aspartate Aminotransferase 63 U/L (15-37); Bilirubin, Total 0.6 mg/dL (0.2-1.0); Total Protein 6.1 g/dL (6.4-8.2)
[2021-03-01 23:13] LABS: INR 0.96 (0.9-1.15); Partial Thromboplastin Time 23.4 sec (23.6-33.0)
[2021-03-02 01:13] LABS: Urine Bacteria NONE SEEN /hpf (None Seen); Urine Blood 2+ /uL (Negative); Urine Specific Gravity 1.019 (1.001-1.035); Urine WBC 19 /hpf (0 - 3); Urine WBC Clumps PRESENT /hpf (None Seen)
[2021-03-02 01:31] LABS: Amphetamine Screen, Urine NEGATIVE (NEGATIVE); Barbiturate Scree,Urine NEGATIVE (NEGATIVE); Benzodiazephine Screen, Urine POSITIVE (NEGATIVE); Cannabinoid Screen, Urine POSITIVE (NEGATIVE); Cocaine Screen, Urine NEGATIVE (NEGATIVE); Phencyclidine Screen, Urine NEGATIVE (NEGATIVE)
[2021-03-02 01:38] LABS: Opiate Scree,Urine NEGATIVE (NEGATIVE)
[2021-03-02] MEDS ORDERED: HALOPERIDOL LACTATE 5 MG/ML INJ VIAL IM ONE ×4 (03:30→21:30)
[2021-03-02] MEDS ORDERED: diphenhdrAMINE HCL 50 MG/1 ML VL IV ONE ×2 (03:30→21:30)
[2021-03-02] MEDS ORDERED: LORazepam 2MG/ML-1ML VIAL IM ONE ×3 (03:30→17:15)
[2021-03-02] MEDS ORDERED: levoFLOXacin 500MG 100 ML IV ONE (04:15)
[2021-03-02] MEDS ORDERED: NITROGLYCERIN 0.4 MG SL TAB SL PRN (07:30)
[2021-03-02] MEDS ORDERED: LORazepam 2MG/ML-1ML VIAL IV PRN (07:30)
[2021-03-02] MEDS ORDERED: HYDROcodone-ACET 5/325MG TAB PO PRN (07:30)
[2021-03-02] MEDS ORDERED: ONDANSETRON HCL 4 MG/2 ML VIAL IV PRN (07:30)
[2021-03-02] MEDS ORDERED: MORPHINE SULFATE INJECTION 2 MG/ML SYRG IV PRN (07:30)
[2021-03-02] MEDS ORDERED: ACETAMINOPHEN 325 MG TAB PO PRN (07:30)
[2021-03-02 08:31] VITALS: BP 133/59
[2021-03-02] MEDS ORDERED: cefTRIAXone 1GM/50ML D5W 50 ML IV SCH (09:00)
[2021-03-02] MEDS ORDERED: cefTRIAXone 1GM/50ML D5W 50 ML IV ONE (10:45)
[2021-03-02] MEDS ORDERED: diphenhdrAMINE HCL 50 MG/1 ML VL ONE ×3 (11:36→21:03)
[2021-03-02] MEDS ORDERED: HALOPERIDOL LACTATE 5 MG/ML INJ VIAL ONE ×3 (11:36→21:03)
[2021-03-02] MEDS ORDERED: LORazepam 2MG/ML-1ML VIAL ONE ×2 (11:37→17:04)
[2021-03-02] MEDS ORDERED: diphenhdrAMINE HCL 50 MG/1 ML VL IM ONE ×2 (11:45→17:15)
[2021-03-02] MEDS: DIGOXIN 0.125 MG TAB PO SCH (12:37)
[2021-03-02] MEDS: AZITHROMYCIN 500MG/ 250ML 250 ML IV SCH (12:37)
[2021-03-02] MEDS: PANTOPRAZOLE 40 MG TAB PO SCH (12:38)
[2021-03-02] MEDS: FUROSEMIDE 20 MG TAB PO SCH (17:24)
[2021-03-03 06:00] LABS: Eosinophils # (auto) 0.2 10 ^3/uL (0-0.8); Monocytes # (auto) 0.5 10 ^3/uL (0-1.3)
[2021-03-03 06:07] LABS: Basophils # (auto) 0.1 10 ^3/uL (0-0.2); Basophils % (auto) 0.6 % (0.0-2.0); Eosinophils % (auto) 1.8 % (0.0-7.0); Hematocrit 37.4 % (41.0-53.0); Hemoglobin 12.8 g/dL (13.5-17.5); Lymphocytes % (auto) 9.9 % (10.0-50.0); Mean Corpuscular Hemoglobin 38.1 pg (28.0-32.0); Mean Corpuscular Hgb Conc. 34.3 g/dL (32.0-36.0); Mean Corpuscular Volume 111.1 fL (80.0-100.0); Monocytes % (auto) 4.5 % (0.0-12.0); Neutrophils # (auto) 8.4 10 ^3/uL (1.6-8.6); Neutrophils % (auto) 83.2 % (37.0-80.0); Nucleated Red Blood Cells % 0.1 %; Red Blood Cells 3.36 10^6/uL (4.5-5.90); Red Cell Distribution Width 14.6 % (11.8-14.3); White Blood Cell 10.1 10^3/uL (4.4-10.8)
[2021-03-03] MEDS: FUROSEMIDE 20 MG TAB PO SCH (06:32)
[2021-03-03 06:35] LABS: BUN/Creatinine Ratio 27.1
[2021-03-03] MEDS ORDERED: LORazepam 2MG/ML-1ML VIAL ONE (08:29)
[2021-03-03] MEDS: PANTOPRAZOLE 40 MG TAB PO SCH (08:43)
[2021-03-03] MEDS: DIGOXIN 0.125 MG TAB PO SCH (08:43)
[2021-03-03] MEDS ORDERED: LORazepam 2MG/ML-1ML VIAL IM ONE (08:45)
[2021-03-03] MEDS ORDERED: cefTRIAXone 1GM/50ML D5W 50 ML IV SCH (09:00)
[2021-03-03] MEDS: AZITHROMYCIN 500MG/ 250ML 250 ML IV SCH (10:00)
[2021-03-03] MEDS ORDERED: predniSONE 20 MG TAB PO ONE (13:45)
[2021-03-03] MEDS: LORazepam 2MG/ML-1ML VIAL IV PRN ×3 (14:15→22:17)
[2021-03-03] MEDS: HALOPERIDOL LACTATE 5 MG/ML INJ VIAL IM PRN (15:39)
[2021-03-03 16:29] VITALS: BP 105/54
[2021-03-03 16:30] VITALS: BP 105/54
[2021-03-03] MEDS: FUROSEMIDE 20 MG/2 ML VIAL IV SCH (17:30)
[2021-03-03 22:00] VITALS: BP 108/64
[2021-03-03] MEDS: DOXYCYCLINE 100MG/250ML 250 ML IV SCH (22:11)
[2021-03-04] MEDS: TEMAZEPAM 15 MG CAP PO PRN (00:03)
[2021-03-04] MEDS: ALBUTEROL SULF 2.5 MG/0.5ML(0.5%) NEB SOLN NEB PRN ×2 (03:32→23:14)
[2021-03-04 03:53] VITALS: BP 118/67
[2021-03-04] MEDS: FUROSEMIDE 20 MG/2 ML VIAL IV SCH ×2 (05:05→18:03)
[2021-03-04] MEDS: DIGOXIN (250MCG/ML) 2 ML AMPULE IV SCH (05:05)
[2021-03-04 07:56] LABS: Basophils # (auto) 0 10 ^3/uL (0-0.2); Basophils % (auto) 0.4 % (0.0-2.0); Eosinophils # (auto) 0.2 10 ^3/uL (0-0.8); Hemoglobin 12.8 g/dL (13.5-17.5); Lymphocytes # (auto) 1.1 10 ^3/uL (0.4-5.4); Monocytes # (auto) 0.6 10 ^3/uL (0-1.3); Red Cell Distribution Width 14.5 % (11.8-14.3)
[2021-03-04 07:58] LABS: Eosinophils % (auto) 1.8 % (0.0-7.0); Lymphocytes % (auto) 11.1 % (10.0-50.0); Mean Corpuscular Hemoglobin 37.9 pg (28.0-32.0); Mean Corpuscular Hgb Conc. 34.6 g/dL (32.0-36.0); Mean Corpuscular Volume 109.6 fL (80.0-100.0); Monocytes % (auto) 5.5 % (0.0-12.0); Neutrophils # (auto) 8.2 10 ^3/uL (1.6-8.6); Neutrophils % (auto) 81.2 % (37.0-80.0); Red Blood Cells 3.38 10^6/uL (4.5-5.90); White Blood Cell 10.1 10^3/uL (4.4-10.8)
[2021-03-04 08:16] LABS: BUN/Creatinine Ratio 27.6; Calcium 8.2 mg/dL (8.5-10.1); Potassium 3.8 mmol/L (3.5-5.1)
[2021-03-04 09:00] VITALS: BP 118/64
[2021-03-04] MEDS: methylPREDNISolone SOD SUCC 40 MG/ML VL IV SCH (09:14)
[2021-03-04] MEDS: DOXYCYCLINE 100MG/250ML 250 ML IV SCH ×2 (09:14→21:30)
[2021-03-04] MEDS: LORazepam 2MG/ML-1ML VIAL IV PRN ×3 (09:43→20:31)
[2021-03-04] MEDS ORDERED: predniSONE 20 MG TAB PO SCH (10:00)
[2021-03-04 12:54] VITALS: BP 113/66
[2021-03-04] MEDS ORDERED: SENNA 8.6 MG TAB PO PRN (13:30)
[2021-03-04 16:02] VITALS: BP 113/66
[2021-03-04 17:00] VITALS: BP 109/68
[2021-03-04] MEDS: HALOPERIDOL LACTATE 5 MG/ML INJ VIAL IM PRN (18:39)
[2021-03-04 21:53] VITALS: BP 131/72
[2021-03-04] MEDS ORDERED: FLEET ENEMA(ADULT) 135 ML PR ONE (23:00)
[2021-03-05] MEDS: LORazepam 2MG/ML-1ML VIAL IV PRN ×3 (00:42→23:28)
[2021-03-05] MEDS: HALOPERIDOL LACTATE 5 MG/ML INJ VIAL IM PRN (03:50)
[2021-03-05 05:00] VITALS: BP 121/77
[2021-03-05] MEDS: FUROSEMIDE 20 MG/2 ML VIAL IV SCH ×2 (05:20→17:44)
[2021-03-05] MEDS: ALBUTEROL SULF 2.5 MG/0.5ML(0.5%) NEB SOLN NEB PRN (06:12)
[2021-03-05 06:41] LABS: Basophils % (auto) 0.3 % (0.0-2.0); Eosinophils # (auto) 0.1 10 ^3/uL (0-0.8)
[2021-03-05 06:43] LABS: Basophils # (auto) 0 10 ^3/uL (0-0.2); Eosinophils % (auto) 0.6 % (0.0-7.0); Hematocrit 37.5 % (41.0-53.0); Hemoglobin 12.8 g/dL (13.5-17.5); Lymphocytes # (auto) 0.9 10 ^3/uL (0.4-5.4); Lymphocytes % (auto) 6.4 % (10.0-50.0); Mean Corpuscular Hemoglobin 37.4 pg (28.0-32.0); Mean Corpuscular Hgb Conc. 34.1 g/dL (32.0-36.0); Mean Corpuscular Volume 109.5 fL (80.0-100.0); Monocytes # (auto) 0.7 10 ^3/uL (0-1.3); Neutrophils # (auto) 12.6 10 ^3/uL (1.6-8.6); Neutrophils % (auto) 87.7 % (37.0-80.0); Red Blood Cells 3.42 10^6/uL (4.5-5.90); Red Cell Distribution Width 14.5 % (11.8-14.3); White Blood Cell 14.4 10^3/uL (4.4-10.8)
[2021-03-05 06:57] LABS: BUN/Creatinine Ratio 29.6; Calcium 8.3 mg/dL (8.5-10.1); Potassium 3.6 mmol/L (3.5-5.1)
[2021-03-05] MEDS: DIGOXIN (250MCG/ML) 2 ML AMPULE IV SCH (07:48)
[2021-03-05] MEDS ORDERED: ADENOSINE 6 MG/2 ML INJ IV ONE (08:15)
[2021-03-05 09:06] VITALS: BP 110/71
[2021-03-05] MEDS: methylPREDNISolone SOD SUCC 40 MG/ML VL IV SCH (11:06)
[2021-03-05] MEDS: DOXYCYCLINE 100MG/250ML 250 ML IV SCH ×2 (11:07→21:03)
[2021-03-05 12:00] VITALS: BP 111/57
[2021-03-05 17:00] VITALS: BP 122/71
[2021-03-05] MEDS: TEMAZEPAM 15 MG CAP PO PRN (21:03)
[2021-03-05 21:08] VITALS: BP 118/67
[2021-03-06 04:00] VITALS: BP 106/71
[2021-03-06] MEDS: LORazepam 2MG/ML-1ML VIAL IV PRN (05:47)
[2021-03-06] MEDS: FUROSEMIDE 20 MG/2 ML VIAL IV SCH ×2 (05:47→18:00)
[2021-03-06 06:38] LABS: Basophils # (auto) 0.1 10 ^3/uL (0-0.2); Basophils % (auto) 0.6 % (0.0-2.0); Eosinophils # (auto) 0.2 10 ^3/uL (0-0.8); Lymphocytes # (auto) 1.6 10 ^3/uL (0.4-5.4); Monocytes # (auto) 0.7 10 ^3/uL (0-1.3); Neutrophils # (auto) 8.4 10 ^3/uL (1.6-8.6)
[2021-03-06 06:40] LABS: Eosinophils % (auto) 1.9 % (0.0-7.0); Hematocrit 39.6 % (41.0-53.0); Hemoglobin 13.8 g/dL (13.5-17.5); Mean Corpuscular Hemoglobin 38.1 pg (28.0-32.0); Mean Corpuscular Hgb Conc. 34.8 g/dL (32.0-36.0); Mean Corpuscular Volume 109.5 fL (80.0-100.0); Monocytes % (auto) 6.6 % (0.0-12.0); Neutrophils % (auto) 75.9 % (37.0-80.0); Red Blood Cells 3.62 10^6/uL (4.5-5.90); Red Cell Distribution Width 14.4 % (11.8-14.3)
[2021-03-06 07:24] LABS: BUN/Creatinine Ratio 30.9; Calcium 8.8 mg/dL (8.5-10.1)
[2021-03-06] MEDS: DIGOXIN (250MCG/ML) 2 ML AMPULE IV SCH (09:25)
[2021-03-06] MEDS: methylPREDNISolone SOD SUCC 40 MG/ML VL IV SCH (09:35)
[2021-03-06] MEDS: DOXYCYCLINE 100MG/250ML 250 ML IV SCH ×2 (09:35→22:58)
[2021-03-06] MEDS ORDERED: METOPROLOL TARTRATE 25 MG TAB PO ONE (19:45)
[2021-03-06] MEDS ORDERED: POTASSIUM CHL 20 Meq TABLET PO ONE (19:45)
[2021-03-06 22:00] VITALS: BP 122/76
[2021-03-06] MEDS: HALOPERIDOL LACTATE 5 MG/ML INJ VIAL IM PRN (22:56)
[2021-03-07] MEDS: TEMAZEPAM 15 MG CAP PO PRN (02:43)
[2021-03-07 05:00] VITALS: BP 112/60
[2021-03-07] MEDS: FUROSEMIDE 20 MG/2 ML VIAL IV SCH (05:31)
[2021-03-07 06:31] LABS: Basophils # (auto) 0.1 10 ^3/uL (0-0.2); Eosinophils # (auto) 0.2 10 ^3/uL (0-0.8); Eosinophils % (auto) 2.2 % (0.0-7.0); Hemoglobin 13.9 g/dL (13.5-17.5); Monocytes # (auto) 0.7 10 ^3/uL (0-1.3); Neutrophils # (auto) 7.2 10 ^3/uL (1.6-8.6); Red Cell Distribution Width 14.2 % (11.8-14.3); White Blood Cell 10.4 10^3/uL (4.4-10.8)
[2021-03-07 06:34] LABS: Basophils % (auto) 0.6 % (0.0-2.0); Hematocrit 39.9 % (41.0-53.0); Lymphocytes # (auto) 2.2 10 ^3/uL (0.4-5.4); Lymphocytes % (auto) 21.1 % (10.0-50.0); Mean Corpuscular Hemoglobin 38.3 pg (28.0-32.0); Mean Corpuscular Hgb Conc. 34.8 g/dL (32.0-36.0); Neutrophils % (auto) 69.1 % (37.0-80.0); Red Blood Cells 3.63 10^6/uL (4.5-5.90)
[2021-03-07 07:01] LABS: Potassium 4.1 mmol/L (3.5-5.1)
[2021-03-07 07:07] LABS: BUN/Creatinine Ratio 29.8
[2021-03-07 09:00] VITALS: BP 116/64
[2021-03-07 09:29] VITALS: BP 112/60
[2021-03-07] MEDS ORDERED: POTASSIUM CHL 20 Meq TABLET PO SCH (10:00)
[2021-03-07] MEDS: DOXYCYCLINE 100MG/250ML 250 ML IV SCH (10:00)
[2021-03-07] MEDS ORDERED: METOPROLOL TARTRATE 25 MG TAB PO SCH (10:00)
[2021-03-07] MEDS: DIGOXIN (250MCG/ML) 2 ML AMPULE IV SCH (10:00)
[2021-03-07] MEDS: methylPREDNISolone SOD SUCC 40 MG/ML VL IV SCH (10:00)
[2021-03-07 13:00] VITALS: BP 112/74
== END 2021-03-07 17:05 | disposition hospice, home (50) | DRG 139 ==
LOC: EDBD 18:38 → ER 18:40 → TELE 03-02 07:22 → TELE-CENTR 03-03 16:40
PROVIDERS: ADMIT Nurse Practitioner; ATTEND Internal Medicine Pulmonary Disease
PROC: 05HF33Z Insertion of Infusion Device into Left Cephalic Vein, Percutaneous Approach (ICD-10-PCS; principal; 2021-03-02)
PROC: B54NZZA Ultrasonography of Left Upper Extremity Veins, Guidance (ICD-10-PCS; 2021-03-02)
DX: J18.9 Pneumonia, unspecified organism (principal); J96.01 Acute respiratory failure with hypoxia; G93.41 Metabolic encephalopathy; E43 Unspecified severe protein-calorie malnutrition; I50.23 Acute on chronic systolic (congestive) heart failure; I11.0 Hypertensive heart disease with heart failure; J44.1 Chronic obstructive pulmonary disease with (acute) exacerbation; X78.1XXA Intentional self-harm by knife, initial encounter; Z66 Do not resuscitate; F10.20 Alcohol dependence, uncomplicated; F12.10 Cannabis abuse, uncomplicated; F15.90 Other stimulant use, unspecified, uncomplicated; F17.210 Nicotine dependence, cigarettes, uncomplicated; J44.0 Chronic obstructive pulmonary disease with (acute) lower respiratory infection; F43.20 Adjustment disorder, unspecified; Z20.822 Contact with and (suspected) exposure to COVID-19; N39.0 Urinary tract infection, site not specified; Z82.5 Family history of asthma and other chronic lower respiratory diseases; Y93.89 Activity, other specified; Y92.89 Other specified places as the place of occurrence of the external cause; Y99.8 Other external cause status; Y93.9 Activity, unspecified; Z68.28 Body mass index [BMI] 28.0-28.9, adult
CPT/HCPCS: 36415; 51702; 70450; 71045; 80048; 80053; 80162; 80307; 80320; 80329; 81001; 82140; 83735; 83880; 84484; 85025; 85610; 85730; 87081; 87086; 87426; 90471; 90715; 93005; 94640; 96365; 96366; 96368; 96372; 96375; 96376; 97163; G0378; J0153; J0696; J1956; J3490

== ENCOUNTER 2021-03-14 01:35 | Emergency (ER) | payer OTHER ==
[~2021-03-14] VITALS: Ht 170.2 cm; Wt 83.9 kg
[2021-03-14 02:23] LABS: Basophils # (auto) 0 10 ^3/uL (0-0.2); Basophils % (auto) 0.2 % (0.0-2.0); Eosinophils # (auto) 0.1 10 ^3/uL (0-0.8); Eosinophils % (auto) 1.4 % (0.0-7.0); Hematocrit 41.4 % (41.0-53.0); Hemoglobin 14.3 g/dL (13.5-17.5); Lymphocytes % (auto) 30.3 % (10.0-50.0); Mean Corpuscular Hemoglobin 38.5 pg (28.0-32.0); Mean Corpuscular Hgb Conc. 34.6 g/dL (32.0-36.0); Mean Corpuscular Volume 111.2 fL (80.0-100.0); Monocytes # (auto) 0.6 10 ^3/uL (0-1.3); Monocytes % (auto) 6.3 % (0.0-12.0); Neutrophils % (auto) 61.8 % (37.0-80.0); Nucleated Red Blood Cells % 0.9 %; Red Blood Cells 3.73 10^6/uL (4.5-5.90); Red Cell Distribution Width 14.8 % (11.8-14.3); White Blood Cell 9.8 10^3/uL (4.4-10.8)
[2021-03-14 02:47] LABS: Alanine Aminotransferase 64 U/L (16-61); Albumin 2.9 g/dL (3.4-5.0); Anion Gap 5 (5-15); Aspartate Aminotransferase 35 U/L (15-37); BUN/Creatinine Ratio 24.8; Blood Urea Nitrogen 26 mg/dL (7-18); Calcium 8.2 mg/dL (8.5-10.1); Carbon Dioxide 28 mmol/L (21-32); Chloride 110 mmol/L (98-107); GFR African American 93 mL/min; GFR Non-African American 77 mL/min; Glucose 102 mg/dL (74-106); Magnesium 2.1 mg/dL (1.6-2.6); Potassium 3.9 mmol/L (3.5-5.1); Sodium 143 mmol/L (136-145)
[2021-03-14 02:52] LABS: Alkaline Phosphatase 108 U/L (45-117); Bilirubin, Total 0.4 mg/dL (0.2-1.0); Total Protein 6.9 g/dL (6.4-8.2)
[2021-03-14 02:55] LABS: INR 1.02 (0.9-1.15)
[2021-03-14] MEDS ORDERED: IPRATROPIUM BROM 0.5 MG/2.5ML INH SOL NEB ONE (04:15)
[2021-03-14] MEDS ORDERED: ALBUTEROL SULF 2.5 MG/0.5ML(0.5%) NEB SOLN NEB ONE (04:15)
[2021-03-14 06:44] VITALS: BP 112/62
== END 2021-03-14 07:24 | disposition left against medical advice (07) ==
LOC: ER 01:35 → EDBD 01:35 → ER 07:24
DX: J18.9 Pneumonia, unspecified organism (principal); R09.02 Hypoxemia; R91.8 Other nonspecific abnormal finding of lung field; F17.210 Nicotine dependence, cigarettes, uncomplicated; F12.10 Cannabis abuse, uncomplicated; F15.10 Other stimulant abuse, uncomplicated; J44.9 Chronic obstructive pulmonary disease, unspecified; Z20.822 Contact with and (suspected) exposure to COVID-19
CPT/HCPCS: 36415; 36600; 71045; 80053; 82805; 83605; 83735; 83880; 84484; 85025; 85610; 87426; 93005; 94640; 99285; J7644